=== PATIENT | female | born 1985 | race Caucasian/White ===

== ENCOUNTER 2016-11-21 22:11 | Emergency (ER) | payer MEDICAID ==
[~2016-11-21] VITALS: Ht 167.6 cm; Wt 136.1 kg
[2016-11-21 22:24] VITALS: BP 144/76; PULSE 86; RESP 18; TEMP 97.9; O2SAT 98
[2016-11-22 00:32] VITALS: BP 132/72; PULSE 86; RESP 16; TEMP 99.2; O2SAT 98
== END 2016-11-22 00:32 | disposition home or self-care (01) ==
LOC: SED 22:11
DX: S93.492A Sprain of other ligament of left ankle, initial encounter (principal); W18.40XA Slipping, tripping and stumbling without falling, unspecified, initial encounter; Y93.02 Activity, running; Y92.89 Other specified places as the place of occurrence of the external cause; Y99.8 Other external cause status
CPT/HCPCS: 29515; 73610; 73630; 99284; J7030

== ENCOUNTER 2019-07-03 19:54 | Emergency (ER) | payer MEDICAID ==
[~2019-07-03] VITALS: Ht 167.6 cm; Wt 117.9 kg
[2019-07-03 20:00] VITALS: BP_SYST 161
[2019-07-03] MEDS ORDERED: HYDROcodone/ACETAMIN 7.5-325 MG TAB PO ONE (20:30)
[2019-07-03 22:14] VITALS: BP_SYST 136
== END 2019-07-03 22:14 | disposition home or self-care (01) ==
LOC: SED 19:54
DX: S39.012A Strain of muscle, fascia and tendon of lower back, initial encounter (principal); F12.90 Cannabis use, unspecified, uncomplicated; X50.3XXA Overexertion from repetitive movements, initial encounter; Y93.39 Activity, other involving climbing, rappelling and jumping off; Y92.89 Other specified places as the place of occurrence of the external cause; Y99.8 Other external cause status
CPT/HCPCS: 72100-TC; 99283

== ENCOUNTER 2019-09-06 16:57 | Emergency (ER) | payer OTHER, MEDICAID ==
[~2019-09-06] VITALS: Ht 167.6 cm; Wt 113.4 kg
[2019-09-06 17:17] VITALS: BP_SYST 160
[2019-09-06] MEDS ORDERED: IBUPROFEN 800 MG TABLET PO ONE (20:30)
[2019-09-06 22:00] VITALS: BP_SYST 138
[2019-09-06 22:36] LABS: BILIRUBIN,URINE NEGATIVE (NEGATIVE); BLOOD, URINE 3+ (NEGATIVE); COLOR,URINE YELLOW (YELLOW); GLUCOSE,URINE NEGATIVE (NEGATIVE); KETONES,URINE NEGATIVE (NEGATIVE); LEUKOCYTE ESTERASE ,URINE NEGATIVE (NEGATIVE); NITRITE, URINE NEGATIVE (NEGATIVE); PROTEIN URINE NEGATIVE (NEGATIVE); UROBILINOGEN,URINE 0.2 (0.2-1.0)
[2019-09-06 22:43] LABS: CLARITY/URINE HAZY (CLEAR)
[2019-09-06 22:56] LABS: BACTERIA,URINE MANY /HPF (None Seen)
[2019-09-06 22:57] LABS: MUCUS,URINE 1+ /LPF (None Seen)
== END 2019-09-06 22:00 | disposition home or self-care (01) ==
LOC: SED 16:57
DX: S13.9XXA Sprain of joints and ligaments of unspecified parts of neck, initial encounter (principal); S23.3XXA Sprain of ligaments of thoracic spine, initial encounter; S20.219A Contusion of unspecified front wall of thorax, initial encounter; V42.5XXA Car driver injured in collision with two- or three-wheeled motor vehicle in traffic accident, initial encounter; Y93.89 Activity, other specified; Y92.89 Other specified places as the place of occurrence of the external cause; Y99.8 Other external cause status
CPT/HCPCS: 71046-TC; 72125-TC; 81000-TC; 81025; 87086; 99285